=== PATIENT | female | born 1995 | race Caucasian/White ===

== ENCOUNTER 2017-06-30 13:53 | Inpatient (IN) | payer OTHER ==
[2017-06-30 15:09] LABS: Hematocrit 40 % (35-47); Hemoglobin 13.7 g/dl (12.0-16.0); Mean Corpuscular HGB Conc 34 g/dl (31-36); Mean Corpuscular Hemoglobin 29 pg (27-31); Mean Corpuscular Volume 84 fL (80-97); Mean Platelet Volume 8 um3 (7.4-10.4); Red Blood Count 4.76 10^6/ul (4.0-5.4); Red Cell Distribution Width 13 % (10.5-15); White Blood Count 7.4 10^3/ul (3.5-10.8)
[2017-06-30 15:30] LABS: ALT 24 U/L (7-52); AST 17 U/L (13-39); Albumin 3.9 g/dL (3.2-5.2); Alkaline Phosphatase 54 U/L (34-104); Anion Gap 5 mmol/L (2-11); BUN/Creatinine Ratio 12.7 (8-20); Blood Urea Nitrogen 9 mg/dL (6-24); CO2 Carbon Dioxide 28 mmol/L (22-32); Calcium 9.4 mg/dL (8.6-10.3); Chloride 104 mmol/L (101-111); EGFR African American 136.4 (>60); Globulin 3.5 g/dL (2-4); Glucose 76 mg/dL (70-100); Sodium 137 mmol/L (133-145); Total Protein 7.4 g/dL (6.4-8.9)
[2017-06-30 15:40] LABS: Acetaminophen < 15 mcg/mL; Alcohol < 10 mg/dL (<10); Salicylate < 2.50 mg/dL (<30)
[2017-06-30 15:54] LABS: TSH (Thyroid Stimulating Horm) 8.97 mcIU/mL (0.34-5.60)
[2017-06-30 16:18] LABS: Urine Bilirubin Negative (Negative); Urine Glucose Negative (Negative); Urine Nitrite Negative (Negative)
[2017-06-30 16:31] LABS: Benzodiazepine Urine Screen None Detected (None Detect)
--- NOTE | 2017-06-30 18:46 | ED ---
Psychiatric Complaint - HPI Summary HPI Summary: Patient presents to the ED with CC of feelings of SI and depression. Her counselor at school as requested she come to the ED for evaluation and possible admission d/t her symptoms. She states she feels this way everyday. Denies attempts today or priors. Denies HI or self harm. Denies ETOH or drug use. Otherwise healthy. Voluntary and she is willing to stay if needed. Extra stressors include school work. - History Of Current Complaint Chief Complaint: EDMentalHealth Time Seen by Provider: 06/30/17 14:15 Hx Obtained From: Patient ?: No Onset/Duration: Sudden Onset Timing: Constant Severity Initially: Moderate Severity Currently: Moderate Character: Depressed Aggravating Factor(s): Nothing Alleviating Factor(s): Nothing Associated Signs And Symptoms: Positive: Social Withdrawal, Social Isolation Related History: Positive For: Prior Psychiatric Issues Has Suicidal: Reports: Thoughts - Allergies/Home Medications Allergies/Adverse Reactions: Allergies Allergy/AdvReac Type Severity Reaction Status Date / Time No Known Allergies Allergy Verified 06/30/17 14:19 PMH/Surg Hx/FS Hx/Imm Hx Previously Healthy: Yes - Immunization History Hx Pertussis Vaccination: No Immunizations Up to Date: Unable to Obtain/Confirm Infectious Disease History: No Infectious Disease History: Denies: Traveled Outside the [place] in Last 30 Days - Social History Occupation: Employed Full-time Lives: With Family Alcohol Use: None Hx Substance Use: No Substance Use Type: Reports: None Smoking Status (MU): Never Smoked Tobacco Review of Systems Constitutional: Negative Negative: Fever, Chills, Fatigue Eyes: Negative Cardiovascular: Negative Respiratory: Negative Genitourinary: Negative Positive: no symptoms reported, see HPI Musculoskeletal: Negative Neurological: Negative Positive: Anxious, Depressed All Other Systems Reviewed And Are Negative: Yes Physical Exam Triage Information Reviewed: Yes Vital Signs On Initial Exam: Initial Vitals Temp Pulse Resp BP Pulse Ox 98.2 F 80 18 120/72 98 06/30/17 14:01 06/30/17 14:01 06/30/17 14:01 06/30/17 14:01 06/30/17 14:01 Vital Signs Reviewed: Yes Appearance: Positive: Well-Appearing, Well-Nourished Skin: Positive: Warm, Skin Color Reflects Adequate Perfusion Head/Face: Positive: Normal Head/Face Inspection Eyes: Positive: EOMI, JACK, Conjunctiva Clear Neck: Positive: Supple, No Lymphadenopathy Respiratory/Lung Sounds: Positive: Clear to Auscultation, Breath Sounds Present Cardiovascular: Positive: Normal, RRR, Pulses are Symmetrical in both Upper and Lower Extremities Musculoskeletal: Positive: Normal, Strength/ROM Intact Neurological: Positive: Speech Normal Psychiatric: Positive: Anxious, Depressed AVPU Assessment: Alert - Alban Coma Scale Coma Scale Total: 15 Diagnostics - Vital Signs Vital Signs Temp Pulse Resp BP Pulse Ox 06/30/17 14:01 98.2 F 80 18 120/72 98 - Laboratory Lab Results: Lab Results 06/30/17 06/30/17 06/30/17 Range/Units 14:57 14:57 15:20 WBC 7.4 (3.5-10.8) 10^3/ul RBC 4.76 (4.0-5.4) 10^6/ul Hgb 13.7 (12.0-16.0) g/dl Hct 40 (35-47) % MCV 84 (80-97) fL MCH 29 (27-31) pg MCHC 34 (31-36) g/dl RDW 13 (10.5-15) % Plt Count 293 (150-450) 10^3/ul MPV 8 (7.4-10.4) um3 Neut % (Auto) 48.1 (38-83) % Lymph % (Auto) 37.5 (25-47) % Wy[place] % (Auto) 11.9 H (1-9) % Eos % (Auto) 1.7 (0-6) % Baso % (Auto) 0.8 (0-2) % Absolute Neuts (auto) 3.5 (1.5-7.7) 10^3/ul Absolute Lymphs (auto) 2.8 (1.0-4.8) 10^3/ul Absolute Monos (auto) 0.9 H (0-0.8) 10^3/ul Absolute Eos (auto) 0.1 (0-0.6) 10^3/ul Absolute Basos (auto) 0.1 (0-0.2) 10^3/ul Absolute Nucleated RBC 0 10^3/ul Nucleated RBC % 0 Sodium 137 (133-145) mmol/L Potassium 4.0 (3.5-5.0) mmol/L Chloride 104 (101-111) mmol/L Carbon Dioxide 28 (22-32) mmol/L Anion Gap 5 (2-11) mmol/L BUN 9 (6-24) mg/dL Creatinine 0.71 (0.51-0.95) mg/dL Est GFR ( Amer) 136.4 (>60) Est GFR (Non-Af Amer) 106.0 (>60) BUN/Creatinine Ratio 12.7 (8-20) Glucose 76 (70-100) mg/dL Calcium 9.4 (8.6-10.3) mg/dL Total Bilirubin 0.50 (0.2-1.0) mg/dL AST 17 (13-39) U/L ALT 24 (7-52) U/L Alkaline Phosphatase 54 (34-104) U/L Total Protein 7.4 (6.4-8.9) g/dL Albumin 3.9 (3.2-5.2) g/dL Globulin 3.5 (2-4) g/dL Albumin/Globulin Ratio 1.1 (1-3) TSH 8.97 H (0.34-5.60) mcIU/mL Urine Color Urine Appearance Urine pH (5-9) Ur Specific [place] (1.010-1.030) Urine Protein (Negative) Urine Ketones (Negative) Urine Blood (Negative) Urine Nitrate (Negative) Urine Bilirubin (Negative) Urine Urobilinogen (Negative) Ur Leukocyte Esterase (Negative) Urine Glucose (Negative) Salicylates < 2.50 (<30) mg/dL Urine Opiates Screen None detected (None Detect) Acetaminophen < 15 mcg/mL Ur Barbiturates Screen None detected (None Detect) Ur Phencyclidine Scrn None detected (None Detect) Ur Amphetamines Screen None detected (None Detect) U Benzodiazepines Scrn None detected (None Detect) Urine Cocaine Screen None detected (None Detect) U Cannabinoids Screen None detected (None Detect) Serum Alcohol < 10 (<10) mg/dL 06/30/17 Range/Units 15:20 WBC (3.5-10.8) 10^3/ul RBC (4.0-5.4) 10^6/ul Hgb (12.0-16.0) g/dl Hct (35-47) % MCV (80-97) fL MCH (27-31) pg MCHC (31-36) g/dl RDW (10.5-15) % Plt Count (150-450) 10^3/ul MPV (7.4-10.4) um3 Neut % (Auto) (38-83) % Lymph % (Auto) (25-47) % Wy[place] % (Auto) (1-9) % Eos % (Auto) (0-6) % Baso % (Auto) (0-2) % Absolute Neuts (auto) (1.5-7.7) 10^3/ul Absolute Lymphs (auto) (1.0-4.8) 10^3/ul Absolute Monos (auto) (0-0.8) 10^3/ul Absolute Eos (auto) (0-0.6) 10^3/ul Absolute Basos (auto) (0-0.2) 10^3/ul Absolute Nucleated RBC 10^3/ul Nucleated RBC % Sodium (133-145) mmol/L Potassium (3.5-5.0) mmol/L Chloride (101-111) mmol/L Carbon Dioxide (22-32) mmol/L Anion Gap (2-11) mmol/L BUN (6-24) mg/dL Creatinine (0.51-0.95) mg/dL Est GFR ( Amer) (>60) Est GFR (Non-Af Amer) (>60) BUN/Creatinine Ratio (8-20) Glucose (70-100) mg/dL Calcium (8.6-10.3) mg/dL Total Bilirubin (0.2-1.0) mg/dL AST (13-39) U/L ALT (7-52) U/L Alkaline Phosphatase (34-104) U/L Total Protein (6.4-8.9) g/dL Albumin (3.2-5.2) g/dL Globulin (2-4) g/dL Albumin/Globulin Ratio (1-3) TSH (0.34-5.60) mcIU/mL Urine Color Straw Urine Appearance Clear Urine pH 8.0 (5-9) Ur Specific [place] 1.005 L (1.010-1.030) Urine Protein Negative (Negative) Urine Ketones Negative (Negative) Urine Blood Negative (Negative) Urine Nitrate Negative (Negative) Urine Bilirubin Negative (Negative) Urine Urobilinogen Negative (Negative) Ur Leukocyte Esterase Negative (Negative) Urine Glucose Negative (Negative) Salicylates (<30) mg/dL Urine Opiates Screen (None Detect) Acetaminophen mcg/mL Ur Barbiturates Screen (None Detect) Ur Phencyclidine Scrn (None Detect) Ur Amphetamines Screen (None Detect) U Benzodiazepines Scrn (None Detect) Urine Cocaine Screen (None Detect) U Cannabinoids Screen (None Detect) Serum Alcohol (<10) mg/dL Result Diagrams: 06/30/17 14:57 06/30/17 14:57 Lab Statement: Any lab studies that have been ordered have been reviewed, and results considered in the medical decision making process. Course/Dx - Course Course Of Treatment: Patient presents with thoughts of SI and depression. Denies other pain or health complaints. She is cleared for MHU. - Differential Dx/Clinical Impression Differential Diagnosis/HQI/PQRI: Positive: Suicide Attempt, Suicidal Ideation, Suicidal Gesture Provider Diagnosis: Depression Discharge - Discharge Plan Condition: Stable Disposition: ADMITTED TO [facility] Referrals: No Primary Care Phys,NOPCP [Primary Care Provider] -
[2017-07-01] MEDS ORDERED: Acetaminophen TAB* 325 MG PO PRN (02:38)
[2017-07-01] MEDS ORDERED: Al Hydrox/Mg Hydrox/Simet LIQ* 30 ML UDC PO PRN (02:38)
[2017-07-01] MEDS ORDERED: traZODone TAB* 50 MG TAB PO PRN (02:40)
[2017-07-01] MEDS: Vitamin THERAPEUTIC TAB PO SCH (09:21)
--- NOTE | 2017-07-01 11:33 | PN ---
MHU: Group Therapy Note - Service Type Service Type: 10835 Group Psychotherapy - Cognitive Behavioral Group Therapy ( CBT):Patient was attentive and participatory in CBT programming this morning, and remained in good behavioral control. Patient expressed positive insights regarding relevant treatment interventions and goals.
[2017-07-01] MEDS: Venlafaxine EXT RELEASE CAP* 37.5 MG PO SCH (13:32)
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
[2017-07-01] MEDS: hydrOXYzine HCL TAB* 25 MG PO PRN (20:55)
[2017-07-02] MEDS: Venlafaxine EXT RELEASE CAP* 37.5 MG PO SCH (07:35)
[2017-07-02] MEDS: Vitamin THERAPEUTIC TAB PO SCH (07:35)
[2017-07-02 08:53] LABS: Free T4 0.72 ng/dL (0.61-1.12)
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
[2017-07-03 08:37] VITALS: BP 116/74
[2017-07-03] MEDS: Venlafaxine EXT RELEASE CAP* 37.5 MG PO SCH (08:40)
[2017-07-03] MEDS: Vitamin THERAPEUTIC TAB PO SCH (08:40)
[2017-07-03] MEDS: hydrOXYzine HCL TAB* 25 MG PO PRN (10:28)
--- NOTE | 2017-07-03 16:40 | DS ---
DATE OF ADMISSION: 06/30/2017. DATE OF DISCHARGE: 07/03/2017. SUPERVISING PSYCHIATRIST: Dr. Mao Schwartz * (dictated by ROVERTO Oneil ). DISCHARGE DIAGNOSES: Major depressive disorder with anxious distress. CONDITION AT THE TIME OF DISCHARGE: The patient is much improved. She reports improvement in mood and anxiety. She states that she is no longer having suicidal ideation or passive wish. She reports she is motivated to return to school and to be able to resume her academic responsibilities. She is motivated to be discharged today so that she can attend her scheduled work shift at [employer] this evening. The patient was agreeable to follow-up with her counselor at [facility] and also with her primary care provider for medication management. She initially declined to have a blood draw to recheck her TSH, but with use of Hydroxyzine she was able to do so. The patient was notified of the result of a normal TSH, 1.81. MENTAL STATUS EXAM AT THE TIME OF DISCHARGE: The patient is a petite, white female who is adequately groomed with her hair down and wearing her own clothing. She appears stated age. Her hair is long and curly with the tips dyed blonde. She is cooperative with interview and has appropriate posture. No psychomotor abnormal activity is noted. She is talkative and answers questions fully. She appears to be a good historian. She is alert and oriented times three. Concentration is good. Her memory is 3/3. Her eye contact is good and her speech is soft and articulate. Her mood is "good." Her affect is congruent, except when cheerful during blood draw. Thought process is logical, coherent and goal-directed. Thought content is negative for SI or passive wish. Her insight is good. Her judgment is good. Her fund of knowledge is excellent. DISCHARGE INSTRUCTIONS GIVEN TO THE PATIENT: A. Medications: Venlafaxine 37.5 mg p.o. daily, this can be increased to 75 mg by her outpatient PCP if she tolerates this dose; Hydroxyzine 25 mg p.o. b.i.d. prn anxiety, agitation, insomnia. The above prescriptions were electronically prescribed to [facility] per patient request. B. Diet: Regular. C. Activity: Ambulation as tolerated. Tobacco cessation is not applicable. TSH was pending at the time of discharge and has returned to be within normal limits. The patient was notified. D. Follow-up care: The patient will follow-up with her [facility] counselor, Juanita Gutierrez, on Friday at 10:45 a.m. She will follow-up with her primary care provider, Ange Torres NP on July 09 at 3:30 p.m. E. Substance use follow-up: Not applicable. HOSPITAL COURSE - PART A: Reason for admission: The patient presented to the emergency department seeking admission for psychiatric services. She reported increase in depressive symptoms with recent suicidal ideation with a plan. She had also stopped taking her psychiatric medications in the last month. HOSPITAL COURSE - PART B: Psychiatric treatment rendered: The patient was admitted to the Adult Behavioral Services Unit on a voluntary status. Code status is full. She was placed on 15 minute checks for safety and encouraged to participate in supportive milieu, individual sessions with staff, and psychoeducational groups. She completed an MMPI which endorsed major depressive disorder. The patient was agreeable to trial venlafaxine for depression and neurovegetative symptoms. She utilized Hydroxyzine as needed for panic and anxiety with good effect. The patient reported improvement in symptoms and was calm and in behavioral control. She identified that reinstating the SNRI was likely helpful with serotonin withdrawal since she stopped taking her Sertraline. The patient was decreased to q.30 minute observation and allowed to go on staff pass. She had visits by her boyfriend and reports that they had recently reunited and he is a strong support. The patient was safe on all checks, denied suicidal ideation. She reported adequate appetite and sleep. Baseline laboratory data indicated an elevated TSH in the emergency room. This was repeated today and noted to be normal at 1.81. The patient reported concern for increased decompensation if the admission continues and due to obligation to treat in a less restrictive setting, discharge was decided upon by treatment team. The patient was given written discharge instructions and escorted by staff to exit and she left with her boyfriend. She was encouraged to call the unit with any questions or concerns and to return to the nearest emergency department should her symptoms worsen. GARLAND GARY NP [id number]/[facility] #: [id number] [place]
== END 2017-07-03 11:30 | disposition home or self-care (01) | DRG 754 ==
LOC: ED 13:53 → BSU 23:14
PROVIDERS: ADMIT Psychiatry & Neurology Psychiatry; ATTEND Psychiatry & Neurology Psychiatry
DX: F32.9 Major depressive disorder, single episode, unspecified (principal); R45.851 Suicidal ideations; F41.8 Other specified anxiety disorders; Z81.8 Family history of other mental and behavioral disorders
CPT/HCPCS: 36415; 80053; 80307; 80320; 80329; 81003; 84439; 84443; 84481; 84702; 85025; A9270-GY; G0480